=== PATIENT | female | born 1960 | race Caucasian/White ===

== ENCOUNTER 2018-06-07 12:07 | Emergency (ER) | payer OTHER, SELFPAY ==
[2018-06-07 12:08] VITALS: BP 142/87; PULSE 87; RESP 18; TEMP 37.1; O2SAT 100; BMI 38.9
--- NOTE | 2018-06-07 13:49 | ED.VISSUMM ---
- ER Visit Summary Date of Service: 06/07/18 Chief Complaint: Possible bat bite History of Present Illness: The patient is a 58 F 1 week ago thought she may have had a bite on her foot. She saw her doctor apparently there is some confusion about her rabies vaccines that she come to the emergency department. She has no symptoms currently. Physical Examination: There is an area on the dorsum of the foot where it is marked with a marker however I do not see any signs of a bite or any abrasions. Emergency Department Course and Treatment: Per patient's request rabies immunoglobulin and rabies vaccination were provided she will be placed on the schedule for rabies vaccine. Discharge stable condition Impression: Bat exposure Rabies vaccine in the emergency department This note was generated with [employer] dictation software. It may contain incorrect words, spelling, and punctuation that were not noted in review of the chart prior to signing ED Disposition - Plan for ED Patient: Disposition: Home or Assisted Living Chief Complaint: Bite Instructions: Rabies Immune Globulin (Human) Solution for injection, Animal Bites and Scratches Referrals: Damien Kohli [Primary Care Provider] - 3-5 Days
[2018-06-07] MEDS: Rabies Immune Globulin 150 UNITS/ML 2000 UNITS IM (14:31)
[2018-06-07] MEDS: Rabies Vaccine,Human Diploid 2.5 UNITS Vial IM (14:44)
== END 2018-06-07 15:24 | disposition home or self-care (01) ==
PROVIDERS: Emergency Provider Emergency Medicine; Family Provider Family Medicine; PCP Family Medicine
DX: Z20.3 Contact with and (suspected) exposure to rabies (principal); Z23 Encounter for immunization; I10 Essential (primary) hypertension
CPT/HCPCS: 90375; 90675; 99283

== ENCOUNTER → 2018-06-10 11:14 | Outpatient (CLI) | payer OTHER, SELFPAY ==
[2018-06-10] MEDS: Rabies Vaccine,Human Diploid 2.5 UNITS Vial IM (11:10)
== END ==
PROVIDERS: Family Provider Family Medicine; PCP Family Medicine; Visit Provider Emergency Medicine
DX: Z23 Encounter for immunization (principal)
CPT/HCPCS: 90675; 96372

== ENCOUNTER → 2018-06-14 18:13 | Outpatient (CLI) | payer OTHER, SELFPAY ==
[2018-06-14 17:46] VITALS: BP 131/85; PULSE 84; RESP 16; TEMP 37.1; O2SAT 94; BMI 38.9
[2018-06-14] MEDS: Rabies Vaccine,Human Diploid 2.5 UNITS Vial IM (18:00)
== END ==
PROVIDERS: Family Provider Family Medicine; PCP Family Medicine
DX: Z23 Encounter for immunization (principal)
CPT/HCPCS: 90675; 96372

== ENCOUNTER → 2018-06-21 19:53 | Outpatient (CLI) | payer OTHER, SELFPAY ==
[2018-06-21] MEDS: Rabies Vaccine,Human Diploid 2.5 UNITS Vial IM (19:37)
--- NOTE | 2018-06-21 20:21 | ED.RN ---
PT DISCHARGED BY REGISTRATION PRIOR TO ALL DOCUMENTATION BEING COMPLETED. VITALS 148/78, HR 78, RR 14, SPO2 99%, TEMP 98.4. NO CHANGES IN HEALTH HX, MEDICATIONS OR ALLERGIES SINCE LAST VISIT. NO REACTIONS TO PRIOR VACCINATIONS. RABAVERT GIVEN IN RIGHT DELTOID WITHOUT COMPLICATIONS, NO REACTIONS NOTED.
== END ==
PROVIDERS: Family Provider Family Medicine; PCP Family Medicine
DX: Z23 Encounter for immunization (principal)
CPT/HCPCS: 90675; 96372